=== PATIENT | male | born 1980 | race African-American/Black ===

== ENCOUNTER 2017-01-05 22:24 | Emergency (ER) | payer OTHER ==
[~2017-01-05] VITALS: Ht 182.9 cm; Wt 100.0 kg
[2017-01-06] MEDS ORDERED: PRED20TA PO (00:28)
[2017-01-06] MEDS ORDERED: diphenhydrAMINE 50 MG CAP PO ONE (00:30)
[2017-01-06] MEDS ORDERED: methylPREDNISolone INJ 125 MG/2 ML VIAL (J2930) IM ONE (00:30)
[2017-01-06 00:42] VITALS: BP 154/86
== END 2017-01-06 00:54 | disposition home or self-care (01) ==
LOC: M ED 22:24
DX: L50.9 Urticaria, unspecified (principal); R21 Rash and other nonspecific skin eruption; S83.204A Other tear of unspecified meniscus, current injury, left knee, initial encounter; X58.XXXA Exposure to other specified factors, initial encounter; Y92.89 Other specified places as the place of occurrence of the external cause; Y93.89 Activity, other specified; Y99.8 Other external cause status; M47.819 Spondylosis without myelopathy or radiculopathy, site unspecified; F17.210 Nicotine dependence, cigarettes, uncomplicated
CPT/HCPCS: 96372; 99282; J2930

== ENCOUNTER → 2017-01-10 | Outpatient (CLI) | payer OTHER ==
[~2017-01-10] MED LIST: PRED20TA PO
--- NOTE | 2017-01-10 17:57 | REP ---
MRI LEFT KNEE: TECHNIQUE: Axial proton density fat saturation, sagittal proton density T2 STIR, water excitation, coronal proton density, proton density fat saturation. The menisci demonstrate no evidence of tear. Cruciate and collateral ligaments are intact. Extensor mechanism is intact. Patellar cartilage is sooth with no osteochondral defect. There is moderately severe chondromalacia at the weightbearing surface of the medial femoral condyle. There is also mild chondromalacia of the adjacent medial tibial plateau. There is no bone marrow edema or occult fracture. There is a large joint effusion. Scattered ill-defined superficial soft tissue edema is present of a mild degree. Medial and lateral patella retinacula are intact. IMPRESSION: Menisci are intact. Cruciate and collateral ligaments are intact. 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 Moderate to large joint effusion. Signed by Charly Harris MD 01/14/2017 09:42 A
== END ==
LOC: M RAD 14:49
PROVIDERS: ATTEND Physical Therapist
DX: M25.562 Pain in left knee (principal)

== ENCOUNTER → 2018-03-14 | Outpatient (CLI) | payer OTHER ==
--- NOTE | 2018-03-26 08:15 | SLEEPCENT ---
DATE OF PROCEDURE: 03/14/2018 ORDERED BY: Johanna Melgar. Nocturnal polysomnography was performed for evaluation of sleep physiology in this patient with a history of excessive somnolence and nonrestorative sleep. 7 hours and 13 minutes of data were reviewed. There were 387 minutes of sleep identified. Sleep latency was normal 8.5 minutes. REM latency was normal at 94 minutes. Sleep architecture was fair with 3 REM cycles. Overall sleep efficiency was 90%. There was a reduction in REM time noted. The patient's electrocardiogram showed a sinus rhythm with an average heart rate of 80 beats per minute. EEG showed fairly normal waveforms for awake and sleep. There were 76 respiratory events identified of 10 seconds in duration or greater for an apnea-hypopnea index of 11.8. The events were primarily obstructive not exclusive to sleep stage, more frequent but not exclusive to the supine posture. Significant snoring was noted. Respiratory related arousals occurred 5.3 times per hour. Oxygen desaturations were seen into the 80s. The oxygen desaturation index was 0.3 with some activity in the limb EMG leads but no significant frequency of arousal was identified. IMPRESSION: Obstructive sleep apnea syndrome (G47.33). Apnea-hypopnea index 11.8. RECOMMENDATIONS: The patient should be encouraged to return to the sleep disorder center for pressure therapy. In the interim, alcohol and sedative avoidance should be practiced and caution exercised during the operation of motor vehicles.
== END ==
LOC: M SLEEP 19:47
PROVIDERS: ATTEND Nurse Practitioner Family
DX: G47.33 Obstructive sleep apnea (adult) (pediatric) (principal)

== ENCOUNTER → 2018-05-02 | Outpatient (CLI) | payer OTHER ==
--- NOTE | 2018-05-08 12:29 | SLEEPCENT ---
DATE OF PROCEDURE: 05/02/2018 ORDERED BY: GIBSON aPula Nocturnal polysomnography was performed for the titration of pressure therapy in this patient with obstructive sleep apnea syndrome. Apnea-hypopnea index 11.8. For testing a [employer] SoftEdge standard mask was applied; 4 cm of water were applied to the circuit and the lights were extinguished. 7 hours and 37 minutes of data were reviewed. There were 428 minutes of sleep identified. Sleep latency was short at 4.5 minutes. Rapid eye movement (REM) latency was short at 68 minutes. Sleep architecture was good with 4 REM cycles. Overall sleep efficiency 94.6%. The patient's electrocardiogram showed a sinus rhythm with an average heart rate of 72 beats per minute. EEG showed normal waveforms for awake and sleep. Respiratory events were fully palliated with CPAP at a pressure +7 and remaining measures of sleep physiology were normal. IMPRESSION: Obstructive sleep apnea syndrome (G47.33). RECOMMENDATIONS: Nightly use of pressure therapy 7 cm of water.
== END ==
LOC: M SLEEP 19:59
PROVIDERS: ATTEND Nurse Practitioner Family
DX: G47.33 Obstructive sleep apnea (adult) (pediatric) (principal)

== ENCOUNTER → 2018-08-04 | Outpatient (CLI) | payer OTHER ==
[~2018-08-04] MED LIST changes: +PROHANCE 279.3MG/ML 15ML VIAL (A9576) As Ordered ONE
--- NOTE | 2018-08-04 18:58 | REP ---
MRA BRAIN WITHOUT CONTRAST: HISTORY: Headache. 3D [id number] MR angiography was performed at the level of the [place]. There is no aneurysm, arteriovenous malformation or atherosclerotic lesion. Major intracranial vessels are patent. The right vertebral artery is dominant. IMPRESSION:Normal MRA brain. Electronically Signed by Teofilo Donis MD 08/04/2018 07:08 P
--- NOTE | 2018-08-04 19:06 | REP ---
MRA CAROTIDS WITHOUT AND WITH CONTRAST: HISTORY: Headache. CONTRAST: ProHance 25 mL. Unenhanced 3D time of flight and contrast enhanced MR angiography were performed at the level of the carotid bifurcations. The distal common carotid arteries and origins of the external and internal carotid arteries are normal. The vertebral arteries are patent. The right vertebral artery is dominant. There are no atherosclerotic lesions. IMPRESSION:Normal MRA carotids. Electronically Signed by Teofilo Donis MD 08/04/2018 07:10 P
== END ==
LOC: M RAD 17:14
PROVIDERS: ATTEND General Practice
DX: M54.2 Cervicalgia (principal)
CPT/HCPCS: 70544; 70548; A9576

== ENCOUNTER → 2019-04-24 | Outpatient (CLI) | payer OTHER ==
[~2019-04-24] MED LIST changes: -PROHANCE 279.3MG/ML 15ML VIAL (A9576) As Ordered ONE
--- NOTE | 2019-04-24 17:01 | REP ---
MRI PELVIS/SACROILIAC JOINTS: Multiple sequences obtained in the axial, coronal and sagittal planes, centered at the sacroiliac joints. There is mild subchondral marrow edema along the right sacroiliac joint particularly inferiorly compatible with very mild sacroiliitis. No abnormal signal seen on the left. Other portions of the visualized osseous structures demonstrate normal bone marrow signal with no other area of bone marrow edema. The visualized intrapelvic structures appear unremarkable. IMPRESSION: Findings compatible with mild right-sided sacroiliitis. Electronically Signed by Charly Harris MD 04/24/2019 05:33 P
--- NOTE | 2019-04-24 17:06 | REP ---
MRI LEFT KNEE: TECHNIQUE: Axial proton density fat saturation, sagittal proton density T2 STIR, water excitation, coronal proton density, proton density fat saturation. There is a tear of the posterior horn of the medial meniscus. Lateral meniscus appears intact. Cruciate and collateral ligaments are intact. Extensor mechanism is intact. Medial and lateral patellar retinacula are intact. There is mild diffuse chondromalacia of the lateral femoral condyle and tibial plateau. There is moderate diffuse chondromalacia of the medial femoral condyle and tibial plateau. There is no bone marrow edema or occult fracture. There is a mild joint effusion. No popliteal cyst is seen. There does appear to be a somewhat complex subcentimeter ganglion cyst anteriorly, at the anterior margin of the medial tibial plateau. IMPRESSION: Tear posterior horn medial meniscus. Moderate diffuse chondromalacia of the medial femoral condyle and tibial plateau. Mild diffuse chondromalacia lateral femoral condyle and tibial plateau. Small joint effusion. Subcentimeter complex ganglion cyst at the anterior margin of the medial tibial plateau. Electronically Signed by Charly Harris MD 04/24/2019 05:33 P
== END ==
LOC: M RAD 14:44
PROVIDERS: ATTEND Internal Medicine
DX: M25.562 Pain in left knee (principal); M53.3 Sacrococcygeal disorders, not elsewhere classified

== ENCOUNTER → 2019-05-25 | Outpatient (CLI) | payer OTHER ==
[2019-05-28 00:06] LABS: ANA (HEP2) Negative (.); ANCA-ATYPICAL <1:20 titer (Neg:<1:20); ANGIOTENSIN 1 CONVERTING ENZYM 18 U/L (14-82); CYTOPLASMIC NEUTROP AB ANCA-C <1:20 titer (Neg:<1:20); PERINUCLEAR AB ANCA-P <1:20 titer (Neg:<1:20); PR3 ANTIPROTEINASE ANTIBODIES <3.5 U/mL (0.0-3.5); SSA SJOGRENS A <0.2 AI (0.0-0.9); SSB SJOGRENS B <0.2 AI (0.0-0.9)
== END ==
LOC: M LAB 10:02
PROVIDERS: ATTEND Internal Medicine
DX: M25.562 Pain in left knee (principal)

== ENCOUNTER → 2019-06-10 | Outpatient (REF) | payer OTHER ==
[2019-06-10 15:01] LABS: HEPATITIS B SURFACE ANTIGEN NEGATIVE (NEGATIVE); HEPATITIS C VIRUS ABY INDEX 0.1 INDEX (<0.8)
== END ==
LOC: M SFHCRHEU 08:46
PROVIDERS: ATTEND Internal Medicine
DX: M45.8 Ankylosing spondylitis sacral and sacrococcygeal region (principal)
CPT/HCPCS: 36415; 86480; 86704; 86803; 87340; G0463